=== PATIENT | female | born 1975 | race Caucasian/White ===

== ENCOUNTER 2016-10-21 09:15 | Emergency (ER) | payer MEDICAID, OTHER ==
[~2016-10-21] VITALS: Ht 162.6 cm; Wt 57.0 kg
[~2016-10-21 09:15] MED LIST: DICY1TAB26 PO; GAS-125C7 PO
[2016-10-21 09:16] VITALS: BP 154/108; PULSE 88; RESP 18; TEMP 98.2; O2SAT 98
[2016-10-21] MEDS ORDERED: bp med PO (10:55)
[2016-10-21] MEDS ORDERED: SODIUM CHLOR 0.9% 1000 ML INJ 1,000 ML IV ONE (11:00)
--- NOTE | 2016-10-21 11:11 | PD ---
HPI Chief Complaint: Complaint Time Seen by Provider: 10:38 Travel History International Travel<30 days: No Contact w/Intl Traveler<30days: No Traveled to known affect area: No History of Present Illness HPI This is a 40-year-old woman who presents to the emergency department complaining of blood in her urine, feeling poorly, fever last night chills and sweats. She states she had her menstrual cycle about a week ago. She had a yeast infection after that. She felt okay. She thought she may left a tampon in at some point because [place] infection. The symptoms all resolved until last night she noticed some bright red blood in her urine. She had some fevers and chills last night. She also had soreness in her muscles in her body. No URI symptoms. No vaginal discharge now. No nausea or vomiting. No other complaints. She has a history of kidney injury from rhabdomyolysis several years ago. History Past Medical History Narrative Medical History of acute kidney injury/rhabdo Tetanus Vaccination: > 5 Years Influenza Vaccination: No LMP: 10/13/16 : 1 Para: 1 Social History Alcohol Use: Yes Tobacco Use: Yes Allergies-Medications (Allergen,Severity, Reaction): Coded Allergies: Levaquin (Verified Allergy, Severe, Hives, 07/28/13) Reported Meds & Prescriptions Reported Meds & Active Scripts Active Keflex (Cephalexin) 500 Mg Cap 500 Mg PO Q8H 7 Days Reported [bp med] 1 Tab PO DAILY Review of Systems Except as stated in HPI: all other systems reviewed are Neg Physical Exam Narrative GENERAL: Well-appearing 40 year-old woman, no acute distress. SKIN: Warm and dry. HEAD: Atraumatic. Normocephalic. CARDIOVASCULAR: Regular rate and rhythm. No murmur appreciated. RESPIRATORY: No accessory muscle use. Clear to auscultation. Breath sounds equal bilaterally. GASTROINTESTINAL: Abdomen is flat and soft. Minimal lower abdominal/suprapubic tenderness. No CVA tenderness to percussion. MUSCULOSKELETAL: No obvious deformities. No clubbing. No cyanosis. No edema. NEUROLOGICAL: Awake and alert. No obvious cranial nerve deficits. Motor grossly within normal limits. Normal speech. PSYCHIATRIC: Appropriate mood and affect; insight and judgment normal. Data Data Last Documented VS Vital Signs Date Time Temp Pulse Resp B/P Pulse Ox O2 Delivery O2 Flow Rate FiO2 10/21/16 11:42 72 18 164/98 100 Room Air 10/21/16 09:16 98.2 Orders Urinalysis - C+S If Indicated (10/21/16 09:41) Ed Urine Pregnancytest Poc (10/21/16 09:41) Complete Blood Count With Diff (10/21/16 10:49) Basic Metabolic Panel (Bmp) (10/21/16 10:49) Creatine Kinase (Cpk) (10/21/16 10:49) Iv Access Insert/Monitor (10/21/16 10:49) Sodium Chlor 0.9% 1000 Ml Inj (Ns 1000 M (10/21/16 11:00) Urine Culture (10/21/16 11:25) CKMB (10/21/16 11:23) CKMB% (10/21/16 11:23) Labs Laboratory Tests Test 10/21/16 10/21/16 11:23 11:25 White Blood Count 15.0 TH/MM3 Red Blood Count 4.35 MIL/MM3 Hemoglobin 14.1 GM/DL Hematocrit 40.4 % Mean Corpuscular Volume 92.7 FL Mean Corpuscular Hemoglobin 32.4 PG Mean Corpuscular Hemoglobin 34.9 % Concent Red Cell Distribution Width 12.6 % Platelet Count 305 TH/MM3 Mean Platelet Volume 7.8 FL Neutrophils (%) (Auto) 77.8 % Lymphocytes (%) (Auto) 15.7 % Monocytes (%) (Auto) 5.9 % Eosinophils (%) (Auto) 0.4 % Basophils (%) (Auto) 0.2 % Neutrophils # (Auto) 11.6 TH/MM3 Lymphocytes # (Auto) 2.3 TH/MM3 Monocytes # (Auto) 0.9 TH/MM3 Eosinophils # (Auto) 0.1 TH/MM3 Basophils # (Auto) 0.0 TH/MM3 CBC Comment DIFF FINAL Differential Comment Sodium Level 137 MEQ/L Potassium Level 3.6 MEQ/L Chloride Level 100 MEQ/L Carbon Dioxide Level 28.7 MEQ/L Anion Gap 8 MEQ/L Blood Urea Nitrogen 9 MG/DL Creatinine 0.90 MG/DL Estimat Glomerular Filtration 70 ML/MIN Rate Random Glucose 85 MG/DL Calcium Level 8.8 MG/DL Total Creatine Kinase 198 U/L Creatine Kinase MB LESS THAN 0.5 NG/ML Creatine Kinase MB % 0.3 % Urine Color LIGHT-YELLOW Urine Turbidity HAZY Urine pH 6.5 Urine Specific [place] 1.005 Urine Protein TRACE mg/dL Urine Glucose (UA) NEG mg/dL Urine Ketones NEG mg/dL Urine Occult Blood MOD Urine Nitrite NEG Urine Bilirubin NEG Urine Urobilinogen LESS THAN 2.0 MG/DL Urine Leukocyte Esterase LARGE Urine RBC 3 /hpf Urine WBC 30 /hpf Urine Squamous Epithelial 3 /hpf Cells Urine Bacteria MANY /hpf Urine Mucus FEW /lpf Microscopic Urinalysis Comment CULTURE INDICATED MDM Medical Decision Making Medical Screen Exam Complete: Yes Emergency Medical Condition: Yes Interpretation(s) LABS: CBC remarkable for mild leukocytosis. CMP is unremarkable Total CK 198 UA was some pyuria Differential Diagnosis UTI, rhabdo, dehydration, other Narrative Course Medical decision making 40-year-old for abdominal and back discomfort and pressure with some dysuria and blood in her urine suggestive of bladder infection. Also some myalgias and chills and a history of rhabdomyolysis. We'll check labs, urine, IV fluids, reassess. Diagnosis Primary Impression: Acute cystitis with hematuria Additional Instructions: Take antibiotics as prescribed. Follow-up with your primary doctor in the next 2-4 days. Return to the emergency department for any new or worsening symptoms. Med/Other Pt SpecificInfo: Prescription(s) given Scripts Cephalexin (Keflex)500 Mg [id number] Mg PO Q8H 7 Days Ref 0 Prov:Cheko Munoz MD 10/21/16 Disposition: 01 DISCHARGE HOME Condition: Stable Cheko Munoz MD Oct 21, 2016 11:11 Cheko Munoz MD Oct 21, 2016 11:11
[2016-10-21 11:38] LABS: AUTOMATED NEUTROPHIL # 11.6 TH/MM3 (1.8-7.7); BASOPHIL % 0.2 % (0.0-2.0); EOSINOPHIL # 0.1 TH/MM3 (0-0.4); EOSINOPHIL % 0.4 % (0.0-4.0); HEMATOCRIT 40.4 % (35.0-46.0); HEMO FLAGS DIFF FINAL; LYMPH % 15.7 % (9.0-44.0); LYMPHOCYTE # 2.3 TH/MM3 (1.0-4.8); MEAN CELL VOLUME 92.7 FL (80.0-100.0); MEAN CORPUSCULAR HEMOGLOBIN 32.4 PG (27.0-34.0); MEAN CORPUSCULAR HGB CONC 34.9 % (32.0-36.0); MONO % 5.9 % (0.0-8.0); NEUT % 77.8 % (16.0-70.0); PLATELET COUNT 305 TH/MM3 (150-450); RED BLOOD COUNT 4.35 MIL/MM3 (4.00-5.30); RED CELL DISTRIBUTION WIDTH 12.6 % (11.6-17.2)
[2016-10-21 11:42] VITALS: BP 164/98; PULSE 72; RESP 18; O2SAT 100
[2016-10-21 11:43] LABS: BACTERIA, URINE MANY /hpf; BLOOD, URINE MOD (NEG); COMMENT (UR) CULTURE INDICATED; CULTURE IF INDICATED CULTURE INDICATED; GLUCOSE,URINE NEG (NEG); KETONE, URINE NEG (NEG); MUCUS URINE FEW /lpf (OCC); NITRITE,URINE NEG (NEG); PH, URINE 6.5 (5.0-8.5); SQUAMOUS EPITHELIAL CELL URINE 3 /hpf (0-5); URINE COLOR LIGHT-YELLOW (YELLW/STRAW)
[2016-10-21 12:02] LABS: ANION GAP 8 MEQ/L (5-15); BICARBONATE 28.7 MEQ/L (21.0-32.0); BLOOD UREA NITROGEN 9 MG/DL (7-18); CHLORIDE 100 MEQ/L (98-107); GLOMERULAR FILTRATION RATE 70 ML/MIN (>89); POTASSIUM 3.6 MEQ/L (3.5-5.1); SODIUM (NA) 137 MEQ/L (136-145)
[2016-10-21 12:06] LABS: CREATINE KINASE 198 U/L (26-192)
[2016-10-21 12:24] LABS: CKMB LESS THAN 0.5 NG/ML (0.5-3.6)
[2016-10-21] MEDS ORDERED: CEPH-460 PO (12:30)
[2016-10-21 12:42] VITALS: BP 154/90; PULSE 77; RESP 18; O2SAT 99
[2016-10-21] MEDS ORDERED: FLUC150T PO (12:58)
== END 2016-10-21 13:05 | disposition home or self-care (01) ==
LOC: NEPA 09:15
DX: N30.01 Acute cystitis with hematuria (principal); S37.001 Unspecified injury of right kidney; Z72.0 Tobacco use
CPT/HCPCS: 80048; 81001; 82550; 82552; 84703; 85025; 87077; 87086; 87186; 99283; J7030